=== PATIENT | male | born 1940 | race Caucasian/White ===

== ENCOUNTER 2019-05-13 15:26 | Inpatient (IN) | payer OTHER, BC ==
--- NOTE | 2019-05-13 16:26 | PDOC ---
History of Present Illness - General Chief Complaint: Blood Transfusion Stated Complaint: BLOOD TRANSFUSION Time Seen by Provider: 05/13/19 16:06 History Source: Family Exam Limitations: Dementia - History of Present Illness Initial Comments: 05/13/19 16:24 HPI 79 YOM with h/o CVA, type 2 diabetes, atrial fibrillation, iron deficiency anemia, hyperlipidemia, dementia, normal pressure hydrocephalus presenting with anemia, Hb 7.2 from the [facility] [place]. he is planned for shunt placement for his NPH tomorrow with Dr Lockhart denies KELLY, dizziness, cp, sob, weakness, paresthesias, AP, n/v/d. denies bloody stools, constipation. has h/o anemia requiring transfusion. Allergies: None Past Medical History/PSH: CVA, type 2 diabetes, atrial fibrillation, iron deficiency anemia, hyperlipidemia, dementia, normal pressure hydrocephalus Social history: [facility] Meds: as documented in EMR PMD: Dr Chou Review of systems Constitutional: no fevers or chills. No weakness HEENT: no headache or dizziness. No congestion. No visual/hearing disturbances. CVS: no cp or syncope. Resp: no sob. No cough. Gastrointestinal: no abdominal pain, nausea, vomiting, diarrhea. Genitourinary: no urinary sx, hematuria. MUSCULOSKELETAL: No joint pain and swelling. No neck or back pain. SKIN: no redness or skin changes, no discharge, no rash. No wounds. Hematologic: no easy bruising/bleeding. +anemia NEUROLOGIC: No headache, dizziness, LOC or altered mental status. No weakness, numbness or tingling. Psych: no anxiety or depression Allergic/Immunologic: no allergies All other systems reviewed and negative, or as documented in HPI. Physical exam General: Well appearing, awake and alert, NAD. HEENT: NCAT, PERRL, EOMI, pale conjunctiva, anicteric, moist mucus membranes, clear oropharynx, no oral lesions.. Neck: neck supple, FROM Resp: CTAB, normal and even respirations, no respiratory distress CVS: Holosystolic murmur, no murmurs, 2+ peripheral pulses throughout, no peripheral edema Abdomen: soft, NTND, no rebound or guarding. No CVAT. Rectal: no gross blood, soft brown stool Back: nontender, normal inspection and ROM MSK: no edema, BUCKLEY x4, ROM intact. No clubbing or cyanosis. +contractures in BLE. Extremities: no calf tenderness; BLE contractures Neuro: alert, oriented appropriately; no focal neurologic deficits Psych: Calm and cooperative Skin: warm and well perfused, cap refill <2 sec, normal color 05/13/19 16:25 05/13/19 17:15 05/13/19 17:39 05/13/19 17:55 Past History - Past Medical History Allergies/Adverse Reactions: Allergies Allergy/AdvReac Type Severity Reaction Status Date / Time No Known Allergies Allergy Unverified 05/13/19 16:01 Home Medications: Ambulatory Orders Acetaminophen [Tylenol] 650 mg PO Q6H PRN 05/13/19 Ascorbic Acid [Vitamin C] 500 mg PO DAILY 05/13/19 Atorvastatin Ca [Lipitor] 40 mg PO HS 05/13/19 Donepezil HCl [Aricept] 5 mg PO HS 05/13/19 Ferrous Gluconate [Fergon -] 324 mg PO DAILY 05/13/19 Metoprolol Succinate [Toprol Xl -] 25 mg PO DAILY 05/13/19 Tamsulosin HCl [Flomax] 0.4 mg PO HS 05/13/19 Tramadol HCl 50 mg PO Q6H PRN 05/13/19 Zinc Gluconate [Zinc] 50 mg PO DAILY 05/13/19 Anemia: Yes (Iron Deficiency Anemia) Asthma: No Cancer: No Cardiac Disorders: Yes (AFib) CVA: Yes (RT SIDED WEAKNESS) COPD: No CHF: No Dementia: Yes Diabetes: Yes GI Disorders: Yes Disorders: No HTN: No Hypercholesterolemia: Yes Liver Disease: No Seizures: No Thyroid Disease: No - Surgical History Abdominal Surgery: Yes (HERNIA REPAIR) - Psycho Social/Smoking Cessation Hx Smoking History: Never smoked Have you smoked in the past 12 months: No Hx Alcohol Use: No Drug/Substance Use Hx: No Substance Use Type: None Hx Substance Use Treatment: No Review of Systems - Review of Systems Able to Perform ROS?: No (dementia) *Physical Exam - Vital Signs Last Vital Signs Temp Pulse Resp BP Pulse Ox 98.1 F 71 18 127/72 97 05/13/19 15:40 05/13/19 15:40 05/13/19 15:40 05/13/19 15:40 05/13/19 15:40 Heart Score/ECG Review #1 ECG reviewed & interpreted by me at: 15:40 General ECG Interpretation: Sinus Rhythm, Normal Rate, Normal Intervals Compared to previous ECG there are: No significant change 05/13/19 17:22 1st degree HB WI interval 228 ms. HR sinus rhythm 68 bpm ED Treatment Course - LABORATORY CBC & Chemistry Diagram: 05/13/19 16:37 05/13/19 16:37 - RADIOLOGY Radiology Studies Ordered: Category Date Time Status CHEST X-RAY PORTABLE* [RAD] Stat Radiology 05/13/19 16:07 Taken Medical Decision Making - Medical Decision Making 05/13/19 17:23 Vital Signs Temp Pulse Resp BP Pulse Ox 98.1 F 71 18 127/72 97 05/13/19 15:40 05/13/19 15:40 05/13/19 15:40 05/13/19 15:40 05/13/19 15:40 consented for blood products, discussed risk and benefits signed verbalized understanding of potential risks as documented in paper chart labs and lytes, txs. lytes unremarkable, Cr borderline coags unremarkable. cxr unremarkable. H/H 7.5/22.9 guaic neg. reassuring, less likely occult GIB. anemia workup sent. 2 units prbc NSG call to Dr Jaquez, planned for NPH management tomorrow, planned for shunt discussed care, ok with hospitalist admission, optimize prior to surgery tmw. NPO after midnight Admit for anemia/NPH. Discussed results and management plan with pt and family member at bedside, agree with impression, treatment indications, recommendations and plan. s/o to ALL SOURCE INTELLIGENCE TECHNICIAN Gifty Figueroa regarding admission 05/13/19 17:51 05/13/19 17:55 05/13/19 17:56 05/13/19 17:56 Discharge - Discharge Information Problems reviewed: Yes Clinical Impression/Diagnosis: NPH (normal pressure hydrocephalus) Anemia Qualifiers: Anemia type: unspecified type Qualified Code(s): D64.9 - Anemia, unspecified Condition: Fair - Admission Yes - Follow up/Referral Referrals: Gonsalo Chou [Primary Care Provider] - - Patient Discharge Instructions - Post Discharge Activity
[2019-05-13 17:18] LABS: BASO % 1.1 % (0-2.0); EOS % 13.6 % (0-4.5); HEMATOCRIT 22.9 % (35.4-49); HEMOGLOBIN 7.5 GM/dL (11.7-16.9); LYMPH % 30.1 % (8-40); MCH 27.6 pg (25.7-33.7); MCHC 32.7 g/dl (32.0-35.9); MEAN CELL VOLUME 84.2 fl (80-96); MEAN PLT VOLUME 7.7 fl (7.5-11.1); MONO % 18.3 % (3.8-10.2); NEUT % 36.9 % (42.8-82.8); PLATELET COUNT 241 K/MM3 (134-434); RBC 2.72 M/mm3 (4.00-5.60); RDW 15.4 % (11.9-15.9); WHITE BLOOD COUNT 5.1 K/mm3 (4.0-10.0)
[2019-05-13 17:31] LABS: INR 1.18 (0.83-1.09); PROTHROMBIN TIME (PATIENT) 13.9 SEC (9.7-13.0)
[2019-05-13 17:33] LABS: ALBUMIN 2.4 g/dl (3.4-5.0); BILIRUBIN,TOTAL 0.3 mg/dL (0.2-1); BLOOD UREA NITROGEN 36.5 mg/dL (7-18); CALCIUM 8.5 mg/dL (8.5-10.1); CREATININE 1.4 mg/dL (0.55-1.3); POTASSIUM 4.8 mmol/L (3.5-5.1)
[2019-05-13 17:34] LABS: ACTIVATED PTT 32.1 SECONDS (25.2-36.5)
[2019-05-13 17:54] LABS: RETICULOCYTES 1.96 % (0.5-1.5)
--- NOTE | 2019-05-13 18:01 | HP ---
Admitting History and Physical - Admission History of Present Illness: 79 y/o male with h/o CVA, type 2 diabetes, atrial fibrillation, iron deficiency anemia, hyperlipidemia, dementia, normal pressure hydrocephalus presenting with anemia, Hb 7.2 from the [facility]. Planned for surgical management of his NPH tomorrow with Dr Lockhart No complaints offered. h/o anemia requiring transfusion in past. 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, Dementia, Other (Normal prerssure hydrocephalus) Cardiovascular: Yes: AFIB, Hyperlipdemia Heme/Onc: Yes: Anemia (iron defeciency) Endocrine: Yes: Diabetes Mellitus - Smoking History Smoking history: Never smoked Have you smoked in the past 12 months: No - Alcohol/Substance Use Hx Alcohol Use: No - Social History Usual Living Arrangement: Yes: Jail ([facility]) History of Recent Travel: No Home Medications - Allergies Allergies/Adverse Reactions: Allergies Allergy/AdvReac Type Severity Reaction Status Date / Time No Known Allergies Allergy Unverified 05/13/19 16:01 - Home Medications Home Medications: Ambulatory Orders Acetaminophen [Tylenol] 650 mg PO Q6H PRN 05/13/19 Ascorbic Acid [Vitamin C] 500 mg PO DAILY 05/13/19 Atorvastatin Ca [Lipitor] 40 mg PO HS 05/13/19 Donepezil HCl [Aricept] 5 mg PO HS 05/13/19 Ferrous Gluconate [Fergon -] 324 mg PO DAILY 05/13/19 Metoprolol Succinate [Toprol Xl -] 25 mg PO DAILY 05/13/19 Tamsulosin HCl [Flomax] 0.4 mg PO HS 05/13/19 Tramadol HCl 50 mg PO Q6H PRN 05/13/19 Zinc Gluconate [Zinc] 50 mg PO DAILY 05/13/19 Family Medical History Family History: Unable to Obtain (dementia) Review of Systems - Review of Systems Constitutional: reports: No Symptoms Eyes: reports: No Symptoms HENT: reports: No Symptoms Neck: reports: No Symptoms Cardiovascular: reports: No Symptoms Respiratory: reports: No Symptoms Gastrointestinal: reports: No Symptoms Genitourinary: reports: No Symptoms Breasts: reports: No Symptoms Reported Musculoskeletal: reports: No Symptoms Integumentary: reports: No Symptoms Neurological: reports: No Symptoms Endocrine: reports: No Symptoms Hematology/Lymphatic: reports: No Symptoms Psychiatric: reports: No Symptoms Physical Examination Constitutional: Yes: Well Nourished, No Distress, Calm Eyes: Yes: WNL, Conjunctiva Clear, EOM Intact HENT: Yes: WNL, Atraumatic, Normocephalic Neck: Yes: WNL, Supple, Trachea Midline Cardiovascular: Yes: WNL, Regular Rate and Rhythm, Murmur Respiratory: Yes: WNL, Regular, CTA Bilaterally Gastrointestinal: Yes: WNL, Normal Bowel Sounds, Soft ...Rectal Exam: Yes: Deferred Breast(s): Yes: WNL Musculoskeletal: Yes: Other (BLE contractures) Extremities: Yes: WNL Edema: No Peripheral Pulses WNL: Yes Peripheral Pulses: Left Radial: 2+, Right Radial: 2+, Left Doralis Pedis: 2+, Right Dorsalis Pedis: 2+, Left Femoral: 2+, Right Femoral: 2+ Integumentary: Yes: WNL Neurological: Yes: Confusion ...Motor Strength: LLE, RLE Psychiatric: Yes: WNL Imaging - Results Chest X-ray: Image Reviewed (no effusion/infiltrates) Problem List - Problems (1) HLD (hyperlipidemia) Assessment/Plan: c/w lipitor Code(s): E78.5 - HYPERLIPIDEMIA, UNSPECIFIED (2) Prophylactic measure Assessment/Plan: FEN Fluids: IVF after Mn Electrolytes:monitor elctrolytes and replete prn Nutrition: NPO past MN DVT heparin Dispo admit to med surg full code discharge planning Code(s): Z29.9 - ENCOUNTER FOR PROPHYLACTIC MEASURES, UNSPECIFIED (3) Diabetes Assessment/Plan: BGM with nmovolog sliding scale AC/HS diabetic diet Code(s): E11.9 - TYPE 2 DIABETES MELLITUS WITHOUT COMPLICATIONS (4) Afib Assessment/Plan: c/w toprol XL Code(s): I48.91 - UNSPECIFIED ATRIAL FIBRILLATION (5) CVA (cerebral vascular accident) Assessment/Plan: contractures to LE Code(s): I63.9 - CEREBRAL INFARCTION, UNSPECIFIED (6) Dementia Assessment/Plan: c/w donezepil encourage family visitation fall precautions bed alarm Code(s): F03.90 - UNSPECIFIED DEMENTIA WITHOUT BEHAVIORAL DISTURBANCE (7) senior care resident Assessment/Plan: will retun back to [facility] upon discharge Code(s): Z59.3 - PROBLEMS RELATED TO LIVING IN RESIDENTIAL INSTITUTION (8) Anemia Assessment/Plan: hgb 7.2 2u PRBC to be transfused IVF after transfusions are complete c/w iron supplements Problems reviewed: Yes Code(s): D64.9 - ANEMIA, UNSPECIFIED Qualifiers: Anemia type: iron deficiency Qualified Code(s): D64.9 - Anemia, unspecified (9) NPH (normal pressure hydrocephalus) Assessment/Plan: pllaned for shunt tmrw with dr Jaquez Code(s): G91.2 - (IDIOPATHIC) NORMAL PRESSURE HYDROCEPHALUS (10) BPH (benign prostatic hyperplasia) Assessment/Plan: c/w flomax Code(s): N40.0 - BENIGN PROSTATIC HYPERPLASIA WITHOUT LOWER URINRY TRACT SYMP Visit type - Emergency Visit Emergency Visit: Yes Care time: The patient presented to the Emergency Department on the above date and was hospitalized for further evaluation of their emergent condition. - New Patient This patient is new to me today: Yes Date on this admission: 05/13/19 - Critical Care Critical Care patient: No
[2019-05-13] MEDS ORDERED: ACETAMINOPHEN 325 MG TABLET (FP) PO PRN ×2 (18:11→18:48)
[2019-05-13] MEDS ORDERED: SODIUM CHLORIDE 1,000 ML IV SCH ×2 (18:15→19:00)
--- NOTE | 2019-05-13 18:44 | HP ---
CHIEF COMPLAINT: PCP: HISTORY OF PRESENT ILLNESS: 79 y/o male with h/o CVA, type 2 diabetes, atrial fibrillation, iron deficiency anemia, hyperlipidemia, dementia, normal pressure hydrocephalus presenting with anemia, Hb 7.2 from the [facility]. Planned for surgical management of his NPH tomorrow with Dr Lockhart No complaints offered. h/o anemia requiring transfusion in past. 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, Other (Normal prerssure hydrocephalus) Cardiovascular: Yes: AFIB, Hyperlipdemia Heme/Onc: Yes: Anemia (iron defeciency) Endocrine: Yes: Diabetes Mellitus - Smoking History Smoking history: Never smoked Have you smoked in the past 12 months: No - Alcohol/Substance Use Hx Alcohol Use: No - Social History Usual Living Arrangement: Yes: Longterm ([facility]) History of Recent Travel: No Home Medications - Allergies Allergies/Adverse Reactions: Allergies Allergy/AdvReac Type Severity Reaction Status Date / Time No Known Allergies Allergy Unverified 05/13/19 16:01 - Home Medications Home Medications: Ambulatory Orders Acetaminophen [Tylenol] 650 mg PO Q6H PRN 05/13/19 Ascorbic Acid [Vitamin C] 500 mg PO DAILY 05/13/19 Atorvastatin Ca [Lipitor] 40 mg PO HS 05/13/19 Donepezil HCl [Aricept] 5 mg PO HS 05/13/19 Ferrous Gluconate [Fergon -] 324 mg PO DAILY 05/13/19 Metoprolol Succinate [Toprol Xl -] 25 mg PO DAILY 05/13/19 Tamsulosin HCl [Flomax] 0.4 mg PO HS 05/13/19 Tramadol HCl 50 mg PO Q6H PRN 05/13/19 Zinc Gluconate [Zinc] 50 mg PO DAILY 05/13/19 Family Medical History Family History: Unable to Obtain (dementia) Review of Systems - Review of Systems Constitutional: reports: No Symptoms Eyes: reports: No Symptoms HENT: reports: No Symptoms Neck: reports: No Symptoms Cardiovascular: reports: No Symptoms Respiratory: reports: No Symptoms Gastrointestinal: reports: No Symptoms Genitourinary: reports: No Symptoms Breasts: reports: No Symptoms Reported Musculoskeletal: reports: No Symptoms Integumentary: reports: No Symptoms Neurological: reports: No Symptoms Endocrine: reports: No Symptoms Hematology/Lymphatic: reports: No Symptoms Psychiatric: reports: No Symptoms Physical Examination Constitutional: Yes: Well Nourished, No Distress, Calm Eyes: Yes: WNL, Conjunctiva Clear, EOM Intact HENT: Yes: WNL, Atraumatic, Normocephalic Neck: Yes: WNL, Supple, Trachea Midline Cardiovascular: Yes: WNL, Regular Rate and Rhythm, Murmur Respiratory: Yes: WNL, Regular, CTA Bilaterally Gastrointestinal: Yes: WNL, Normal Bowel Sounds, Soft ...Rectal Exam: Yes: Deferred Breast(s): Yes: WNL Musculoskeletal: Yes: Other (BLE contractures) Extremities: Yes: WNL Edema: No Peripheral Pulses WNL: Yes Peripheral Pulses: Left Radial: 2+, Right Radial: 2+, Left Doralis Pedis: 2+, Right Dorsalis Pedis: 2+, Left Femoral: 2+, Right Femoral: 2+ Integumentary: Yes: WNL Neurological: Yes: Confusion ...Motor Strength: LLE, RLE Psychiatric: Yes: WNL Imaging - Results Chest X-ray: Image Reviewed (no effusion/infiltrates) Problem List - Problems (1) HLD (hyperlipidemia) Assessment/Plan: c/w lipitor Code(s): E78.5 - HYPERLIPIDEMIA, UNSPECIFIED (2) Prophylactic measure Assessment/Plan: FEN Fluids: IVF after Mn Electrolytes:monitor elctrolytes and replete prn Nutrition: NPO past [place] DVT heparin Dispo admit to med surg full code discharge planning Code(s): Z29.9 - ENCOUNTER FOR PROPHYLACTIC MEASURES, UNSPECIFIED (3) Diabetes Assessment/Plan: BGM with nmovolog sliding scale AC/HS diabetic diet Code(s): E11.9 - TYPE 2 DIABETES MELLITUS WITHOUT COMPLICATIONS (4) Afib Assessment/Plan: c/w toprol XL Code(s): I48.91 - UNSPECIFIED ATRIAL FIBRILLATION (5) CVA (cerebral vascular accident) Assessment/Plan: contractures to LE Code(s): I63.9 - CEREBRAL INFARCTION, UNSPECIFIED (6) Dementia Assessment/Plan: c/w donezepil encourage family visitation fall precautions bed alarm Code(s): F03.90 - UNSPECIFIED DEMENTIA WITHOUT BEHAVIORAL DISTURBANCE (7) senior living resident Assessment/Plan: will retun back to [facility] upon discharge Code(s): Z59.3 - PROBLEMS RELATED TO LIVING IN RESIDENTIAL INSTITUTION (8) Anemia Assessment/Plan: hgb 7.2 2u PRBC to be transfused IVF after transfusions are complete c/w iron supplements Problems reviewed: Yes Code(s): D64.9 - ANEMIA, UNSPECIFIED Qualifiers: Anemia type: iron deficiency Qualified Code(s): D64.9 - Anemia, unspecified (9) NPH (normal pressure hydrocephalus) Assessment/Plan: pllaned for shunt tmrw with dr Jaquez Code(s): G91.2 - (IDIOPATHIC) NORMAL PRESSURE HYDROCEPHALUS (10) BPH (benign prostatic hyperplasia) Assessment/Plan: c/w flomax Code(s): N40.0 - BENIGN PROSTATIC HYPERPLASIA WITHOUT LOWER URINRY TRACT SYMP Visit type - Emergency Visit Emergency Visit: Yes Care time: The patient presented to the Emergency Department on the above date and was hospitalized for further evaluation of their emergent condition. - New Patient This patient is new to me today: Yes Date on this admission: 05/13/19 - Critical Care Critical Care patient: No Family Medical History Family History: Unable to Obtain Problem List - Problem (1) Anemia Code(s): D64.9 - ANEMIA, UNSPECIFIED Qualifiers: Anemia type: iron deficiency Qualified Code(s): D64.9 - Anemia, unspecified (2) NPH (normal pressure hydrocephalus) Code(s): G91.2 - (IDIOPATHIC) NORMAL PRESSURE HYDROCEPHALUS (3) Afib Code(s): I48.91 - UNSPECIFIED ATRIAL FIBRILLATION (4) BPH (benign prostatic hyperplasia) Code(s): N40.0 - BENIGN PROSTATIC HYPERPLASIA WITHOUT LOWER URINRY TRACT SYMP (5) CVA (cerebral vascular accident) Code(s): I63.9 - CEREBRAL INFARCTION, UNSPECIFIED (6) Dementia Code(s): F03.90 - UNSPECIFIED DEMENTIA WITHOUT BEHAVIORAL DISTURBANCE (7) Diabetes Code(s): E11.9 - TYPE 2 DIABETES MELLITUS WITHOUT COMPLICATIONS (8) HLD (hyperlipidemia) Code(s): E78.5 - HYPERLIPIDEMIA, UNSPECIFIED (9) senior living resident Code(s): Z59.3 - PROBLEMS RELATED TO LIVING IN RESIDENTIAL INSTITUTION (10) Prophylactic measure Code(s): Z29.9 - ENCOUNTER FOR PROPHYLACTIC MEASURES, UNSPECIFIED Visit type - Emergency Visit Emergency Visit: Yes Care time: The patient presented to the Emergency Department on the above date and was hospitalized for further evaluation of their emergent condition. - New Patient This patient is new to me today: Yes Date on this admission: 05/13/19 - Critical Care Critical Care patient: No
[2019-05-13 21:05] VITALS: BMI 19.3
[2019-05-13] MEDS ORDERED: INSULIN (NOVOLOG) ASPART 100 UNITS/ML 10ML VIAL ONE (21:48)
[2019-05-13] MEDS ORDERED: ATORVASTATIN CA 40 MG TABLET (FP) PO SCH (22:00)
[2019-05-13] MEDS ORDERED: HEPARIN NA (PORCINE) 5,000 UNITS/ML 1ML VIAL SQ SCH (22:00)
[2019-05-13] MEDS ORDERED: TAMSULOSIN HCL 0.4 MG CAP PO SCH (22:00)
[2019-05-13] MEDS ORDERED: DONEPEZIL HCL 5 MG TABLET (FP) PO SCH ×2 (22:00)
[2019-05-13] MEDS ORDERED: INSULIN SLIDING SCALE (NOVOLOG) 1 VIAL SQ SCH (22:00)
[2019-05-13] MEDS: TAMSULOSIN HCL 0.4 MG CAP PO SCH (22:01)
[2019-05-13] MEDS: HEPARIN NA (PORCINE) 5,000 UNITS/ML 1ML VIAL SQ SCH (22:02)
[2019-05-13] MEDS: INSULIN SLIDING SCALE (NOVOLOG) 1 VIAL SQ SCH (22:15)
[2019-05-14] MEDS: INSULIN SLIDING SCALE (NOVOLOG) 1 VIAL SQ SCH ×4 (06:00→21:56)
[2019-05-14 08:04] LABS: HEMATOCRIT 28.5 % (35.4-49); HEMOGLOBIN 9.5 GM/dL (11.7-16.9); MCH 28.2 pg (25.7-33.7); MCHC 33.4 g/dl (32.0-35.9); MEAN CELL VOLUME 84.3 fl (80-96); MEAN PLT VOLUME 7.5 fl (7.5-11.1); PLATELET COUNT 221 K/MM3 (134-434); RBC 3.38 M/mm3 (4.00-5.60); RDW 14.9 % (11.9-15.9); WHITE BLOOD COUNT 4.9 K/mm3 (4.0-10.0)
--- NOTE | 2019-05-14 08:20 | PN ---
Progress Note, Physician Chief Complaint: awaiting OR today History of Present Illness: 79 y/o male with h/o CVA, type 2 diabetes, atrial fibrillation, iron deficiency anemia, hyperlipidemia, dementia, normal pressure hydrocephalus presenting with anemia, Hb 7[facility]. Planned for surgical management of his NPH tomorrow with Dr Lockhart No complaints offered. h/o anemia requiring transfusion in past. Being admitted for medical optimization for planned surgery today - Current Medication List Current Medications: Active Medications Acetaminophen (Tylenol -) 650 mg PO Q6H PRN PRN Reason: PAIN LEVEL 1 - 3 Ascorbic Acid (Vitamin C -) 500 mg PO DAILY [facility] Atorvastatin Calcium (Lipitor -) 40 mg PO HS [facility] Last Admin: 05/13/19 22:02 Dose: 40 mg Donepezil HCl (Aricept -) 5 mg PO HS [facility] Last Admin: 05/13/19 22:01 Dose: 5 mg Ferrous Gluconate (Fergon -) 324 mg PO DAILY [facility] Heparin Sodium (Porcine) (Heparin -) 5,000 unit SQ BID [facility] Last Admin: 05/13/19 22:02 Dose: 5,000 unit Sodium Chloride (Normal Saline -) 1,000 mls @ 50 mls/hr IV ASDIR [facility] Stop: 05/14/19 18:50 Last Admin: 05/13/19 20:54 Dose: 50 mls/hr Insulin Aspart (Novolog Vial Sliding Scale -) 1 vial SQ ACHS [facility]; Protocol Last Admin: 05/14/19 06:00 Dose: Not Given Metoprolol Succinate (Toprol Xl -) 25 mg PO DAILY [facility] Non-Formulary Medication (Zinc Gluconate [Zinc]) 50 mg PO DAILY [facility] Tamsulosin HCl (Flomax -) 0.4 mg PO [facility] Last Admin: 05/13/19 22:01 Dose: 0.4 mg Tramadol HCl (Ultram -) 50 mg PO Q6H PRN PRN Reason: PAIN LEVEL 4 - 6 - Objective Vital Signs: Vital Signs Temperature 98.2 F 05/13/19 23:00 Pulse Rate 71 05/13/19 23:00 Respiratory Rate 18 05/13/19 23:00 Blood Pressure 124/62 05/13/19 23:00 O2 Sat by Pulse Oximetry (%) 99 05/13/19 21:00 Additional Findings/Remarks: Constitutional: Yes: Well Nourished, No Distress, Calm Eyes: Yes: WNL, Conjunctiva Clear, EOM Intact HENT: Yes: WNL, Atraumatic, Normocephalic Neck: Yes: WNL, Supple, Trachea Midline Cardiovascular: Yes: WNL, Regular Rate and Rhythm, Murmur Respiratory: Yes: WNL, Regular, CTA Bilaterally Gastrointestinal: Yes: WNL, Normal Bowel Sounds, Soft ...Rectal Exam: Yes: Deferred Breast(s): Yes: WNL Musculoskeletal: Yes: Other (BLE contractures) Extremities: Yes: WNL Edema: No Peripheral Pulses WNL: Yes Peripheral Pulses: Left Radial: 2+, Right Radial: 2+, Left Doralis Pedis: 2+, Right Dorsalis Pedis: 2+, Left Femoral: 2+, Right Femoral: 2+ Integumentary: Yes: WNL Neurological: Yes: Confusion ...Motor Strength: LLE, RLE Psychiatric: Yes: WNL Labs: CBC, BMP 05/13/19 16:37 INR, PTT INR 1.18 (0.83-1.09) H 05/13/19 16:35 Problem List - Problems (1) Anemia Assessment/Plan: 2u PRBC transfused overnight c/w iron supplements after OR Code(s): D64.9 - ANEMIA, UNSPECIFIED Qualifiers: Anemia type: iron deficiency (2) NPH (normal pressure hydrocephalus) 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 Code(s): G91.2 - (IDIOPATHIC) NORMAL PRESSURE HYDROCEPHALUS (3) Afib Assessment/Plan: c/w toprol XL Code(s): I48.91 - UNSPECIFIED ATRIAL FIBRILLATION (4) BPH (benign prostatic hyperplasia) Assessment/Plan: c/w flomax Code(s): N40.0 - BENIGN PROSTATIC HYPERPLASIA WITHOUT LOWER URINRY TRACT SYMP (5) CVA (cerebral vascular accident) Assessment/Plan: contractures to LE Code(s): I63.9 - CEREBRAL INFARCTION, UNSPECIFIED (6) Dementia Assessment/Plan: c/w donezepil encourage family visitation fall precautions bed alarm Code(s): F03.90 - UNSPECIFIED DEMENTIA WITHOUT BEHAVIORAL DISTURBANCE (7) Diabetes Assessment/Plan: BGM with nmovolog sliding scale AC/HS diabetic diet Code(s): E11.9 - TYPE 2 DIABETES MELLITUS WITHOUT COMPLICATIONS (8) HLD (hyperlipidemia) Assessment/Plan: c/w lipitor Code(s): E78.5 - HYPERLIPIDEMIA, UNSPECIFIED (9) halfway resident Assessment/Plan: will retun back to [facility] upon discharge Code(s): Z59.3 - PROBLEMS RELATED TO LIVING IN RESIDENTIAL INSTITUTION (10) Prophylactic measure Assessment/Plan: FEN Fluids: IVF after [place] Electrolytes:monitor elctrolytes and replete prn Nutrition: NPO for OR DVT heparin Dispo admit to med surg full code discharge planning Code(s): Z29.9 - ENCOUNTER FOR PROPHYLACTIC MEASURES, UNSPECIFIED Visit type - Emergency Visit Emergency Visit: Yes ED Registration Date: 05/13/19 Care time: The patient presented to the Emergency Department on the above date and was hospitalized for further evaluation of their emergent condition. - New Patient This patient is new to me today: No - Critical Care Critical Care patient: No - Discharge Referral Referred to [facility] Med P.C.: No
[2019-05-14] MEDS ORDERED: ONDANSETRON 4 MG/2 ML VIAL ONE (09:57)
[2019-05-14] MEDS ORDERED: NEOSTIGMINE METHYLSULFATE 0.5 MG/1 ML - 10 ML MDV ONE (09:58)
[2019-05-14] MEDS ORDERED: PROPOFOL 20 ML ONE ×5 (09:58→13:21)
[2019-05-14] MEDS ORDERED: ROCURONIUM BROMIDE 50 MG/5 ML SYRINGE ONE ×2 (09:58→10:55)
[2019-05-14] MEDS ORDERED: metoPROLOL SUCCINATE 25 MG TAB.SR.24H (FP) PO SCH (10:00)
[2019-05-14] MEDS ORDERED: GENTAMICIN SO4 80 MG/2 ML VIAL ONE (10:13)
[2019-05-14] MEDS ORDERED: THROMBIN (BOVINE) 20,000 UNIT VIAL TP ONE (10:14)
[2019-05-14] MEDS ORDERED: LIDOCAINE 1%-EPI 1:100,000 30 ML MDV IJ ONE (10:14)
[2019-05-14] MEDS ORDERED: VANCOMYCIN 1,000 MG VIAL (RESTRICTED TO ID ONLY) IVPB ONE (10:30)
[2019-05-14] MEDS ORDERED: METOPROLOL TARTRATE 5 MG/5 ML VIAL ONE (10:31)
[2019-05-14] MEDS ORDERED: ceFAZolin SODIUM 1 GM VIAL IVPB ONE (10:50)
[2019-05-14] MEDS ORDERED: VANCOMYCIN 1,000 MG VIAL (RESTRICTED TO ID ONLY) ONE (11:11)
[2019-05-14] MEDS ORDERED: PHENYLEPHRINE HCL 10 MG/1 ML SINGLE DOSE VIAL ONE (11:32)
[2019-05-14] MEDS ORDERED: GLYCOPYRROLATE 0.2 MG/1 ML VIAL ONE (12:07)
[2019-05-14] MEDS ORDERED: oxyCODONE HCL 5 MG TABLET PO PRN ×3 (13:03→13:18)
[2019-05-14] MEDS ORDERED: LACTATED RINGERS SOLUTION 1,000 ML/1,000 ML INFUS.BAG IV SCH (13:15)
--- NOTE | 2019-05-14 13:30 | OP ---
Operative Note - Note: Operative Date: 05/14/19 Pre-Operative Diagnosis: normal pressure hydrochephalus Operation: Ventriculopleural shunt placement Post-Operative Diagnosis: Same as Pre-op Surgeon: Hayden Lockhart Hat Cutter: Katharine Greenberg Anesthesiologist/PUBLIC AREA ATTENDANT: Evans Corrigan Anesthesia: General Estimated Blood Loss (mls): 25 Fluid Volume Replaced (mls): 1,000 Operative Report Dictated: Yes
--- NOTE | 2019-05-14 13:34 | EKG ---
Test Reason : Blood Pressure : / mmHG Vent. Rate : 068 BPM Atrial Rate : 068 BPM P-R Int : 228 ms QRS Dur : 088 ms QT Int : 386 ms P-R-T Axes : 063 065 065 degrees QTc Int : 410 ms SINUS RHYTHM WITH 1ST DEGREE A-V BLOCK OTHERWISE NORMAL ECG NO PREVIOUS ECGS AVAILABLE Confirmed by SANDEE CALDERON MD ([id number]) on 05/14/2019 1:33:39 PM Referred By: Confirmed By:SANDEE CALDERON MD
[2019-05-14] MEDS: DOCUSATE SODIUM 100 MG CAPSULE (FP) PO SCH ×2 (14:59→21:56)
[2019-05-14] MEDS: HEPARIN NA (PORCINE) 5,000 UNITS/ML 1ML VIAL SQ SCH (14:59)
[2019-05-14] MEDS: traMADol HCL 50 MG TABLET PO PRN (16:15)
[2019-05-14] MEDS ORDERED: DEXTROSE 5%-WATER - 50 ML IVPB ONE (17:44)
[2019-05-14] MEDS ORDERED: ceFAZolin SODIUM 1 GM VIAL ONE (17:44)
[2019-05-14] MEDS: CEFAZOLIN 1 GM in DEXTROSE 5%-WATER - 50 ML IVPB SCH (18:20)
[2019-05-14] MEDS ORDERED: INSULIN (NOVOLOG) ASPART 100 UNITS/ML 10ML VIAL ONE (21:30)
[2019-05-14] MEDS: TAMSULOSIN HCL 0.4 MG CAP PO SCH (21:56)
[2019-05-14] MEDS: oxyCODONE HCL 5 MG TABLET PO PRN (21:56)
[2019-05-14] MEDS ORDERED: HEPARIN NA (PORCINE) 5,000 UNITS/ML 1ML VIAL SQ SCH (22:00)
[2019-05-14] MEDS ORDERED: ATORVASTATIN CA 40 MG TABLET (FP) PO SCH (22:00)
[2019-05-15] MEDS: CEFAZOLIN 1 GM in DEXTROSE 5%-WATER - 50 ML IVPB SCH (02:25)
[2019-05-15] MEDS ORDERED: ceFAZolin SODIUM 1 GM VIAL ONE (03:14)
[2019-05-15] MEDS ORDERED: DEXTROSE 5%-WATER - 50 ML IVPB ONE (03:14)
[2019-05-15] MEDS: DOCUSATE SODIUM 100 MG CAPSULE (FP) PO SCH (06:22)
[2019-05-15] MEDS: INSULIN SLIDING SCALE (NOVOLOG) 1 VIAL SQ SCH ×2 (06:22→11:58)
--- NOTE | 2019-05-15 09:41 | DS ---
"Physical Exam: SUBJECTIVE: Patient seen and examined 79 y/o male with h/o CVA, type 2 diabetes, atrial fibrillation, iron deficiency anemia, hyperlipidemia, dementia, normal pressure hydrocephalus presented to ED with anemia, Hb 7.2 from the [facility] [place]. S/P POND SUPERVISOR shunt POD#1 . Medically stable for discharge to rehab OBJECTIVE: Vital Signs Period Temp Pulse Resp BP Sys/[place] Pulse Ox Last 24 Hr 97.1 F-98.5 F 71-84 16-20 102-131/44-70 94-99 - Current Medication List Current Medications: Active Medications Acetaminophen (Tylenol -) 650 mg PO Q6H PRN PRN Reason: PAIN LEVEL 1 - 3 Ascorbic Acid (Vitamin C -) 500 mg PO DAILY [facility] Atorvastatin Calcium (Lipitor -) 40 mg PO HS [facility] Last Admin: 05/13/19 22:02 Dose: 40 mg Donepezil HCl (Aricept -) 5 mg PO HS [facility] Last Admin: 05/13/19 22:01 Dose: 5 mg Ferrous Gluconate (Fergon -) 324 mg PO DAILY [facility] Heparin Sodium (Porcine) (Heparin -) 5,000 unit SQ BID [facility] Last Admin: 05/13/19 22:02 Dose: 5,000 unit Sodium Chloride (Normal Saline -) 1,000 mls @ 50 mls/hr IV ASDIR [facility] Stop: 05/14/19 18:50 Last Admin: 05/13/19 20:54 Dose: 50 mls/hr Insulin Aspart (Novolog Vial Sliding Scale -) 1 vial SQ ACHS [facility]; Protocol Last Admin: 05/14/19 06:00 Dose: Not Given Metoprolol Succinate (Toprol Xl -) 25 mg PO DAILY [facility] Non-Formulary Medication (Zinc Gluconate [Zinc]) 50 mg PO DAILY [facility] Tamsulosin HCl (Flomax -) 0.4 mg PO [facility] Last Admin: 05/13/19 22:01 Dose: 0.4 mg Tramadol HCl (Ultram -) 50 mg PO Q6H PRN PRN Reason: PAIN LEVEL 4 - 6 - Objective Vital Signs: Vital Signs Temperature 98.2 F 05/13/19 23:00 Pulse Rate 71 05/13/19 23:00 Respiratory Rate 18 05/13/19 23:00 Blood Pressure 124/62 05/13/19 23:00 O2 Sat by Pulse Oximetry (%) 99 05/13/19 21:00 PHYSICAL EXAM Constitutional: Yes: Well Nourished, No Distress, Calm Eyes: Yes: WNL, Conjunctiva Clear, EOM Intact HENT: Yes: WNL, Atraumatic, Normocephalic Neck: Yes: WNL, Supple, Trachea Midline Cardiovascular: Yes: WNL, Regular Rate and Rhythm, Murmur Respiratory: Yes: WNL, Regular, CTA Bilaterally Gastrointestinal: Yes: WNL, Normal Bowel Sounds, Soft ...Rectal Exam: Yes: Deferred Breast(s): Yes: WNL Musculoskeletal: Yes: Other (BLE contractures) Extremities: Yes: WNL Edema: No Peripheral Pulses WNL: Yes Peripheral Pulses: Left Radial: 2+, Right Radial: 2+, Left Doralis Pedis: 2+, Right Dorsalis Pedis: 2+, Left Femoral: 2+, Right Femoral: 2+ Integumentary: Yes: WNL Neurological: Yes: Confusion ...Motor Strength: LLE, RLE Psychiatric: Yes: WNL LABS Laboratory Results - last 24 hr 05/13/19 05/14/19 05/14/19 16:35 10:00 16:23 Haptoglobin 191 POC Glucometer 82 103 05/14/19 05/15/19 21:55 06:21 Haptoglobin POC Glucometer 105 99 HOSPITAL COURSE: Date of Admission:05/13/19 Date of Discharge: 05/15/19 Problem List - Problems (1) Anemia Assessment/Plan: 2u PRBC transfused pre-operatively H/H stable c/w iron supplements upon discharge Code(s): D64.9 - ANEMIA, UNSPECIFIED Qualifiers: Anemia type: iron deficiency (2) NPH (normal pressure hydrocephalus) Assessment/Plan: s/p POND SUPERVISOR shunt. POD#1 surgical care outlined in discharge summary Code(s): G91.2 - (IDIOPATHIC) NORMAL PRESSURE HYDROCEPHALUS (3) Afib Assessment/Plan: Rtae controlled c/w toprol XL Code(s): I48.91 - UNSPECIFIED ATRIAL FIBRILLATION (4) BPH (benign prostatic hyperplasia) Assessment/Plan: c/w flomax Code(s): N40.0 - BENIGN PROSTATIC HYPERPLASIA WITHOUT LOWER URINRY TRACT SYMP (5) CVA (cerebral vascular accident) Assessment/Plan: contractures to LE Discharge back to [facility] c/w PT Code(s): I63.9 - CEREBRAL INFARCTION, UNSPECIFIED (6) Dementia Assessment/Plan: c/w donezepil fall precautions Code(s): F03.90 - UNSPECIFIED DEMENTIA WITHOUT BEHAVIORAL DISTURBANCE (7) Diabetes Assessment/Plan: Blood sugars well controlled diabetic diet Code(s): E11.9 - TYPE 2 DIABETES MELLITUS WITHOUT COMPLICATIONS (8) HLD (hyperlipidemia) Assessment/Plan: c/w lipitor Code(s): E78.5 - HYPERLIPIDEMIA, UNSPECIFIED (9) long term resident Assessment/Plan: to return back to [facility] Code(s): Z59.3 - PROBLEMS RELATED TO LIVING IN RESIDENTIAL INSTITUTION Dispo To return back to [facility] Minutes to complete discharge: 45 Discharge Summary Problems reviewed: Yes Reason For Visit: ANEMIA Current Active Problems Anemia (Acute) NPH (normal pressure hydrocephalus) (Acute) Hospital Course: HOSPITAL COURSE: Date of Admission:05/13/19 Date of Discharge: 05/15/19 Problem List - Problems (1) Anemia Assessment/Plan: 2u PRBC transfused pre-operatively H/H stable c/w iron supplements upon discharge Code(s): D64.9 - ANEMIA, UNSPECIFIED Qualifiers: Anemia type: iron deficiency (2) NPH (normal pressure hydrocephalus) Assessment/Plan: s/p POND SUPERVISOR shunt. POD#1 surgical care outlined in discharge summary Code(s): G91.2 - (IDIOPATHIC) NORMAL PRESSURE HYDROCEPHALUS (3) Afib Assessment/Plan: Rtae controlled c/w toprol XL Code(s): I48.91 - UNSPECIFIED ATRIAL FIBRILLATION (4) BPH (benign prostatic hyperplasia) Assessment/Plan: c/w flomax Code(s): N40.0 - BENIGN PROSTATIC HYPERPLASIA WITHOUT LOWER URINRY TRACT SYMP (5) CVA (cerebral vascular accident) Assessment/Plan: contractures to LE Discharge back to [facility] c/w PT Code(s): I63.9 - CEREBRAL INFARCTION, UNSPECIFIED (6) Dementia Assessment/Plan: c/w donezepil fall precautions Code(s): F03.90 - UNSPECIFIED DEMENTIA WITHOUT BEHAVIORAL DISTURBANCE (7) Diabetes Assessment/Plan: Blood sugars well controlled diabetic diet Code(s): E11.9 - TYPE 2 DIABETES MELLITUS WITHOUT COMPLICATIONS (8) HLD (hyperlipidemia) Assessment/Plan: c/w lipitor Code(s): E78.5 - HYPERLIPIDEMIA, UNSPECIFIED (9) long term resident Assessment/Plan: to return back to [facility] Code(s): Z59.3 - PROBLEMS RELATED TO LIVING IN RESIDENTIAL INSTITUTION Dispo To return back to [facility] - Instructions Diet, Activity, Other Instructions: POST-OPERATIVE INSTRUCTIONS Diet: You may resume your regular diet. If you have Diabetes be sure to control your sugars as high sugar levels can increase your risk of infection. Increase your fluid and fiber intake to avoid constipation which may be caused by narcotic pain medications. Pain control: You may take Tylenol (Acetaminophen) for pain. Do not take more than 3g (3000mg) in a 24-hour period as this can lead to liver damage. If you have been prescribed Keppra, please take as directed. Do not discontinue this medication without speaking with your surgeon. If you have been prescribed a steroid taper, please complete according to the instructions. Incision care: You may shower in 48 hours. When showering, use mild shampoo ( Baby shampoo works well) and allow the shampoo and water to run over your incision. Do not scrub the incision. When done showering, make sure to pat the incision completely dry. Your evelyn will be removed at your post-operative appointment. Do not submerge your incision in water (swimming, baths, etc.) for four weeks after surgery. Lifting: Do not lift, push, or pull more than 5 pounds for four weeks after surgery. Activity: It is important to get out of bed and move as soon as possible after surgery to avoid developing problems such as blood clots or pneumonia. Walk with assistance if you feel unsteady. Get plenty of rest. Avoid rigorous activity for 4 weeks after surgery. You may walk for exercise. You must have someone home with you at all times (24 hours per day) until otherwise instructed by your surgeon. Driving: Do not drive until cleared by your surgeon. You may experience: Constipation: This is a common problem after surgery due to anesthesia, inactivity, and prescription pain medications. It is helpful to increase water, fresh fruits and vegetables, fiber and bran in your diet. Also, you may take [id number] docusate sodium tablets, 100 mg 1 to 2 times per day to keep your stools soft. You may decrease the amount taken if your stools become too soft. If constipation is not relieved with these measures, you may take Milk of Magnesia (if no kidney disease), 1 to 2 tablespoons every 12 hours. If this doesnt work, it is recommended that you use an enema or rectal suppository to assist with evacuation of the rectum. This is preferred over heavy straining. If an enema or rectal suppository is not successful, please notify us the office. Side effects of steroid medications: You may be discharged from the hospital on a steroid medication (dexamethasone) to decrease brain swelling. Some of the possible side effects of steroid medications include: dizziness, appetite changes, emotional changes, heartburn, constipation, insomnia, and fluid retention. Steroids help ease the aches and pains that you feel on a day to day basis so when you are tapering off of the steroids, you might feel these symptoms return. You may also feel tired and emotionally down for a few days. Just rest and know that you will feel better in time. PLEASE RESTART YOUR ELIQUIS ON POST OP DAY #2 FRIDAY,05/16/19 Call your surgeons office immediately or report to the ED if you experience: A temperature of 101 degrees or higher. Chills with shivering Worsening headaches or neck stiffness Confusion or changes in behavior Persistent vomiting. Inability to keep down food or fluids. Increasing redness, swelling, and drainage of blood or fluid from an incision site. Inability to urinate or have a bowel movement. Increasing drowsiness Seizures Follow up: Call the office to schedule your follow up appointment in 7-10 days. [facility] [employer]: This report was requested by: Chris Zaragoza | Reference #: [id number] Referrals: Gonsalo Chou [Primary Care Provider] - Hayden Lockhart MD, FAANS [Staff Physician] - Disposition: [facility] - Home Medications Comprehensive Discharge Medication List: Ambulatory Orders Acetaminophen [Tylenol] 650 mg PO Q6H PRN 05/13/19 Ascorbic Acid [Vitamin C] 500 mg PO DAILY 05/13/19 Atorvastatin Ca [Lipitor] 40 mg PO HS 05/13/19 Donepezil HCl [Aricept] 5 mg PO HS 05/13/19 Ferrous Gluconate [Fergon -] 324 mg PO DAILY 05/13/19 Metoprolol Succinate [Toprol XL -] 25 mg PO DAILY 05/13/19 Tamsulosin HCl [Flomax] 0.4 mg PO HS 05/13/19 Tramadol HCl 50 mg PO Q6H PRN 05/13/19 Zinc Gluconate [Zinc] 50 mg PO DAILY 05/13/19 Prescription Drug Monitoring Program (I-STOP) results: I-STOP reviewed and no issues identified Problem List - Problems (1) Anemia Code(s): D64.9 - ANEMIA, UNSPECIFIED Qualifiers: Anemia type: iron deficiency (2) NPH (normal pressure hydrocephalus) Code(s): G91.2 - (IDIOPATHIC) NORMAL PRESSURE HYDROCEPHALUS (3) Afib Code(s): I48.91 - UNSPECIFIED ATRIAL FIBRILLATION (4) BPH (benign prostatic hyperplasia) Code(s): N40.0 - BENIGN PROSTATIC HYPERPLASIA WITHOUT LOWER URINRY TRACT SYMP (5) CVA (cerebral vascular accident) Code(s): I63.9 - CEREBRAL INFARCTION, UNSPECIFIED (6) Dementia Code(s): F03.90 - UNSPECIFIED DEMENTIA WITHOUT BEHAVIORAL DISTURBANCE (7) Diabetes Code(s): E11.9 - TYPE 2 DIABETES MELLITUS WITHOUT COMPLICATIONS (8) HLD (hyperlipidemia) Code(s): E78.5 - HYPERLIPIDEMIA, UNSPECIFIED (9) long term resident Code(s): Z59.3 - PROBLEMS RELATED TO LIVING IN RESIDENTIAL INSTITUTION (10) Prophylactic measure Code(s): Z29.9 - ENCOUNTER FOR PROPHYLACTIC MEASURES, UNSPECIFIED This patient is new to me today: No Emergency Visit: Yes ED Registration Date: 05/13/19 Care time: The patient presented to the Emergency Department on the above date and was hospitalized for further evaluation of their emergent condition. Critical Care patient: No - Discharge Referral Referred to [facility] No"
[2019-05-15] MEDS ORDERED: FERROUS GLUCONATE 324 MG TAB (FP) PO SCH ×2 (10:00)
[2019-05-15] MEDS ORDERED: ASCORBIC ACID 500 MG TABLET (FP) PO SCH (10:00)
[2019-05-15] MEDS ORDERED: metoPROLOL SUCCINATE 25 MG TAB.SR.24H (FP) PO SCH (10:00)
[2019-05-15] MEDS ORDERED: ZINC GLUCONATE 50 MG PO SCH (10:00)
[2019-05-15] MEDS: oxyCODONE HCL 5 MG TABLET PO PRN (10:38)
[2019-05-15] MEDS ORDERED: ONDANSETRON 4 MG/2 ML VIAL IVPUSH ONE (11:38)
[2019-05-15] MEDS ORDERED: ONDANSETRON 4 MG/2 ML VIAL ONE (11:47)
[2019-05-15] MEDS ORDERED: ACETAMINOPHEN 1000 MG/100 ML VIAL (NON FORMULARY) IVPB ONE (11:51)
[2019-05-15] MEDS: traMADol HCL 50 MG TABLET PO PRN (11:54)
--- NOTE | 2019-05-15 11:54 | HOSP ---
Subjective - Review of Symptoms Gastrointestinal: Yes: Vomiting (one epidose of emesis) Physical Examination Vital Signs: Vital Signs Temperature 97.8 F 05/15/19 04:57 Pulse Rate 82 05/15/19 04:57 Respiratory Rate 20 05/15/19 04:57 Blood Pressure 118/64 05/15/19 04:57 O2 Sat by Pulse Oximetry (%) 96 05/14/19 21:00 Gastrointestinal: Yes: WNL, Normal Bowel Sounds, Soft, Vomiting (x 1, bilous) Labs: CBC, BMP 05/14/19 07:40 05/13/19 16:37 Hospitalist Encounter Recommendations/Interventions: Patient had one episode on non bloody, bilios emesis. Zofran x 1 and 1 dose of ofrimiv ordered. Transport to [facility] changed to 2 pm.
[2019-05-15 15:11] VITALS: BP 143/72; PULSE 86; TEMP 97.9
== END 2019-05-15 17:01 | DRG 982 ==
LOC: JER 15:26 → J6S 17:50
PROVIDERS: ATTEND Nurse Practitioner Acute Care
PROC: 30233N1 Transfusion of Nonautologous Red Blood Cells into Peripheral Vein, Percutaneous Approach (ICD-10-PCS; principal; 2019-05-13)
PROC: 00160J4 Bypass Cerebral Ventricle to Pleural Cavity with Synthetic Substitute, Open Approach (ICD-10-PCS; 2019-05-14)
DX: D50.9 Iron deficiency anemia, unspecified (principal); G91.2 (Idiopathic) normal pressure hydrocephalus; G81.91 Hemiplegia, unspecified affecting right dominant side; N40.0 Benign prostatic hyperplasia without lower urinary tract symptoms; E11.9 Type 2 diabetes mellitus without complications; I48.91 Unspecified atrial fibrillation; E78.5 Hyperlipidemia, unspecified; F03.90 Unspecified dementia, unspecified severity, without behavioral disturbance, psychotic disturbance, mood disturbance, and anxiety
CPT/HCPCS: 36415; 36430; 36511; 70450-TC; 71045-TC-FY; 71046-TC-FY; 80053; 82272; 82728; 82962; 83010; 83615; 85025; 85027; 85044; 85610; 85730; 86850; 86900; 86901; 86922; 93005; 93010; 94010; 94760; 99285-25; J1644; J7030; P9038; P9058